=== PATIENT | male | born 1950 | race Caucasian/White ===

== ENCOUNTER 2020-03-03 06:38 | Outpatient (CLI) | payer BC, SELFPAY ==
[2020-03-03 07:20] LABS: Basophils Percent Auto 0.4 % (0.2-1.2); Eosinophils Absolute Auto 0.2 K/mm3 (0-0.3); Eosinophils Percent Auto 4.3 % (0-4.4); Hematocrit 46.9 % (42.0-52.0); Immature Granulocyte Absolute 0.02 K/mm3 (0.00-0.031); Immature Granulocyte Percent A 0.4 % (0-0.5); Lymphocytes Absolute Auto 1.53 K/mm3 (0.9-3.2); Lymphocytes Percent Auto 30.1 % (18.3-44.2); Mean Corpuscular HGB Conc 34.1 g/dl (32-36); Mean Corpuscular Hemoglobin 30.6 pg (26-34); Mean Corpuscular Volume 89.7 fl (80-100); Mean Platelet Volume 8.7 fl (7.4-10.4); Monocytes Absolute Auto 0.5 K/mm3 (0.1-0.6); Monocytes Percent Auto 9.4 % (2.6-8.5); Neutrophils Absolute Auto 2.8 K/mm3 (1.3-6.7); Neutrophils Percent Auto 55.4 % (45.5-73.1); Platelet Count Result 153 k/mm3 (150-375); Red Blood Count 5.23 M/mm3 (4.6-6.20); Red Cell Distribution Width 13.2 % (11.5-14.5); White Blood Count 5.1 K/mm3 (4.5-10.0)
[2020-03-03 07:30] LABS: INR 1.1; Prothrombin Time 13.9 Seconds (11.1-14.7)
[2020-03-03 07:32] LABS: Partial Thromboplastin Time 25.1 SECONDS (22.3-36.8)
[2020-03-03 07:41] LABS: Hemoglobin A1C 5.3 % (<5.7)
[2020-03-03 07:51] LABS: Alanine Aminotransferase 24 U/L (4-50); Albumin Level 4.4 g/dL (3.5-5.1); Alkaline Phosphatase 51 U/L (38-126); Anion Gap 7 mmol/L (8-16); Aspartate Amino Transferase 27 U/L (17-59); Bilirubin,Total 0.8 mg/dL (0.2-1.3); Blood Urea Nitrogen 28 mg/dL (9-20); Carbon Dioxide 27 mmol/L (22-30); Chloride 106 mmol/L (98-107); Cholesterol 228 mg/dL (0-200); Estimated Glomerular Filt Rate 55; Glucose 97 mg/dL (75-110); HDL Direct 44 mg/dL; Potassium 4.4 mmol/L (3.4-5.0); Sodium 140 mmol/L (137-145); Triglycerides 119 mg/dL (<150)
[2020-03-03 08:05] LABS: LDL Cholesterol Direct 148 mg/dL
[2020-03-03 08:44] LABS: Prostate Specific Antigen 0.9 ng/mL (< OR = 4.0)
== END 2020-03-03 06:39 | disposition home or self-care (01) ==
PROVIDERS: PCP Family Medicine; Visit Provider Family Medicine
DX: R73.03 Prediabetes (principal); I82.401 Acute embolism and thrombosis of unspecified deep veins of right lower extremity; K51.211 Ulcerative (chronic) proctitis with rectal bleeding
CPT/HCPCS: 36415; 80053; 80061; 81241; 83036; 84153; 85025; 85303; 85306; 85610; 85730; G0103

== ENCOUNTER → 2020-11-03 02:55 | Outpatient (CLI) | payer MEDICARE, SELFPAY ==
[2020-11-03 19:37] LABS: SARS-CoV-2 RNA PCR Negative
== END ==
PROVIDERS: PCP Family Medicine; Visit Provider Internal Medicine Gastroenterology
DX: Z20.822 Contact with and (suspected) exposure to COVID-19 (principal)
CPT/HCPCS: C9803; U0003; U0005

== ENCOUNTER 2020-11-06 01:31 | Day surgery (SDC) | payer MEDICARE, SELFPAY ==
[2020-10-24 14:30] VITALS: BMI 25.2
[2020-11-06 07:31] VITALS: BP 119/69; PULSE 89; RESP 18; TEMP 36.2; O2SAT 98; BMI 24.0
[2020-11-06] MEDS: LACTATED RINGERS 1,000 ML 150 ML IV CONT (07:48)
--- NOTE | 2020-11-06 08:19 | P.PNAN_ITS ---
Anes - Initial Pre Proc Eval Procedure: Operation Date: 11/06/20 09:00 Proposed Procedures p Screening Colonoscopy - Juni Strickland MD Date/Time: 11/06/20 08:19 Surgeon: Juni Strickland MD Pre Op Diagnosis: hx of colon polyps, neoplasm screening Patient Data Age: 70 Gender: M Height: 5 ft 10 in Weight: 76 kg Last Vital Signs Temp 97.2 F L 11/06/20 07:31 Pulse 89 11/06/20 07:31 Resp 18 11/06/20 07:31 BP 119/69 11/06/20 07:31 Pulse Ox 98 11/06/20 07:31 Allergies Allergy/AdvReac Type Severity Reaction Status Date / Time No Known Allergies Allergy Unknown Verified 11/06/20 07:19 Home Medications Medication Instructions Recorded Confirmed Type multivitamin with minerals 1 tablet PO DAILY 05/19/19 11/06/20 History cholecalciferol (vitamin D3) 125 5,000 unit PO DAILY 08/06/19 11/06/20 History mcg (5,000 unit) capsule tamsulosin 0.4 mg capsule 0.4 mg PO DAILY #30 cap 11/01/20 11/06/20 Rx Patient hx anesthesia problems: none Family hx anesthesia problems: none PMFSH Past Medical History Medical History History of kidney stones Left leg DVT (~05/24/19) Liver cyst Benign cyst of the left hepatic lobe noted on ultrasound in May 2017. Spermatocele Large left spermatocele on ultrasound in August 2015, performed for scrotal pain. Surgical History Surgical History History of colonoscopy with polypectomy Tubular adenoma was removed on colonoscopy in March [address] Strickland. Colonoscopy in September 2014 showed internal hemorrhoids only. Status post wisdom tooth extraction Family History Family History Mother Patient's mother is Acute myocardial infarction Sibling Family history of malignant neoplasm of breast Father Leukemia Social History Social History Social History: The patient lives in [place]. He is still but his lives in [place]. They have 7 children and 11 grandchildren. He designates his , Polly, as his surrogate decision maker and he wishes to be a full code. 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 He is a lifelong nonsmoker. He drinks alcohol socially and in moderation. No drug use. Smoking status: Never smoker Alcohol intake: unknown Substance use: never Substance use type: does not use Living arrangements: alone Gender identity (if verbalized by the patient): Male Spiritual care concerns: No Agree to blood products: Yes Anes - Eval Final PreProcedure Day of Procedure 11/06/20 08:19 Patient weight: normal Heart: regular rate and rhythm Lungs: clear to auscultation Airway: Mallampati scale class II Neurological: alert and oriented Last oral intake: >/= 8 hours ASA classification: II Emergent: no Anesthetic plan: proceed Anesthesia type and monitoring: general GIVS and standard monitoring Informed Consent: The patient's anesthetic plan and its attendant risks and benefits were discussed with the patient/family/POA. Questions were solicited and answers provided to the satisfaction of the patient/family/POA.
--- NOTE | 2020-11-06 08:39 | WPDGICN ---
Assessment and Plan Assessment and plan (1) History of colonoscopy with polypectomy: Code(s): Z98.890 - Other specified postprocedural states; Z86.010 - Personal history of colonic polyps Status: Inactive Assessment and Plan: Patient has a history of colon polyps for this reason surveillance colonoscopy at 5 year intervals is advised. High-fiber diet suggested. Further recommendations will be given after colonoscopy. GI Consult Note Consult date/time: 11/06/20 08:39 HPI: Nato Mcneil is a 70 year old male Seen in evaluation at the request of Dr. Richard Ann. Patient presents for screening colonoscopy. Patient has a history of adenomatous colon polyp removed from the colon 2008. Patient reports his current weight appetite bowel movements are normal. He denies abdominal pain. He has had no bleeding. Family history is noncontributory. Today will have a screening colonoscopy per Review of Systems Review of Systems: All systems reviewed & are unremarkable except as noted in HPI and below PMFSH Past Medical History Medical History History of kidney stones Left leg DVT (~05/24/19) Liver cyst Benign cyst of the left hepatic lobe noted on ultrasound in May 2017. Spermatocele Large left spermatocele on ultrasound in August 2015, performed for scrotal pain. Surgical History Surgical History History of colonoscopy with polypectomy Tubular adenoma was removed on colonoscopy in March [address] Strickland. Colonoscopy in September 2014 showed internal hemorrhoids only. Status post wisdom tooth extraction Family History Family History Mother Patient's mother is Acute myocardial infarction Sibling Family history of malignant neoplasm of breast Father Leukemia Social History Social History Social History: The patient lives in [place]. He is still but his lives in [place]. They have 7 children and 11 grandchildren. He designates his , Polly, as his surrogate decision maker and he wishes to be a full code. 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 He is a lifelong nonsmoker. He drinks alcohol socially and in moderation. No drug use. Smoking status: Never smoker Alcohol intake: unknown Substance use: never Substance use type: does not use Living arrangements: alone Gender identity (if verbalized by the patient): Male Spiritual care concerns: No Agree to blood products: Yes Meds Home Medications and Allergies Home Medications Medication Instructions Recorded Confirmed Type multivitamin with minerals 1 tablet PO DAILY 05/19/19 11/06/20 History cholecalciferol (vitamin D3) 125 5,000 unit PO DAILY 08/06/19 11/06/20 History mcg (5,000 unit) capsule tamsulosin 0.4 mg capsule 0.4 mg PO DAILY #30 cap 11/01/20 11/06/20 Rx Allergies Allergy/AdvReac Type Severity Reaction Status Date / Time No Known Allergies Allergy Unknown Verified 11/06/20 07:19 Vital Signs Vital Signs - 24 hr 11/06/20 07:31 Temperature 97.2 F L Pulse Rate 89 Respiratory Rate 18 Blood Pressure 119/69 Pulse Oximetry 98 Exam Narrative: Exam Narrative: physical exam reveals patient to be alert. Vital signs stable. HEENT exam is unremarkable. Lungs are clear to auscultation and percussion. Heart is without murmur or extra sounds. Abdominal exam bowel sounds are present soft nontender with no organomegaly. Digital external rectal exam is normal.
[2020-11-06 09:04] VITALS: BP 94/55; PULSE 61; RESP 20; O2SAT 100
[2020-11-06 09:14] VITALS: BP 105/65; PULSE 75; RESP 20; O2SAT 99
[2020-11-06 09:24] VITALS: BP 105/65; PULSE 66; RESP 11; O2SAT 100
== END 2020-11-06 09:37 | disposition home or self-care (01) ==
PROVIDERS: PCP Family Medicine; Visit Provider Internal Medicine Gastroenterology
PROC: 0DJD8ZZ Inspection of Lower Intestinal Tract, Via Natural or Artificial Opening Endoscopic (ICD-10-PCS; CPT 45378; principal; 2020-11-06 09:00)
DX: Z12.11 Encounter for screening for malignant neoplasm of colon (principal); D12.2 Benign neoplasm of ascending colon; K76.89 Other specified diseases of liver; Z86.718 Personal history of other venous thrombosis and embolism; Z86.010 Personal history of colon polyps; Z87.442 Personal history of urinary calculi
CPT/HCPCS: 45385; 88305; J2001; J2704; J7120